=== PATIENT | female | born 1945 | race Caucasian/White ===

== ENCOUNTER 2018-12-05 09:01 | Emergency (ER) | payer MEDICARE, BC ==
[~2018-12-05] VITALS: Ht 157.5 cm; Wt 79.4 kg
[2018-12-05] MEDS ORDERED: SYNTHROID75 MCG ORAL (09:17)
[2018-12-05] MEDS ORDERED: OMEPRAZOLE40 M1 ORAL (09:17)
--- NOTE | 2018-12-05 09:26 | NUR ---
ED Nurse Note:pt. came with c/o upper respitatory infection for several days, seen by ER MD and was placed on vehicle monitor technician [id number]
[2018-12-05] MEDS ORDERED: Albuterol ud Inhalation HHN ONE (09:30)
[2018-12-05 09:34] VITALS: BP 126/65
--- NOTE | 2018-12-05 09:42 | NUR ---
ED Nurse Note: Patient urinated while waiting to be triaged in waiting room. pt stated "I will try soon."
--- NOTE | 2018-12-05 09:43 | NUR ---
ED Nurse Note: x-ray done at bedside and pt is getting breathing treatment.
--- NOTE | 2018-12-05 09:48 | NUR ---
ED Nurse Note: ERMD at bedside explaining patient EKG results which is normal.
[2018-12-05 09:51] LABS: BASOPHILS % (AUTO) 0.8 % (0.0-2.0); EOSINOPHILS % (AUTO) 3.6 % (0.0-3.0); HEMATOCRIT 42.3 % (37.0-47.0); HEMOGLOBIN 14.2 G/DL (12.0-16.0); LYMPHOCYTES % (AUTO) 17.2 % (20.0-45.0); MEAN CORPUSCULAR VOLUME 91 FL (80-99); MONOCYTES % (AUTO) 6.5 % (1.0-10.0); NEUTROPHILS % (AUTO) 71.9 % (45.0-75.0); PLATELET COUNT 225 K/UL (150-450); RED BLOOD COUNT 4.64 M/UL (4.20-5.40); WHITE BLOOD COUNT 10.3 K/UL (4.8-10.8)
--- NOTE | 2018-12-05 09:56 | NUR ---
ED Nurse Note: Patient could not provide urine sample. KELLIED made aware.
[2018-12-05 10:00] LABS: ANION GAP 10 mmol/L (5-15); BLOOD UREA NITROGEN 20 mg/dL (7-18); CALCIUM 8.8 MG/DL (8.5-10.1); CARBON DIOXIDE 24 MMOL/L (21-32); CHLORIDE 104 MMOL/L (98-107); CREATININE 0.9 MG/DL (0.55-1.30); POTASSIUM 3.9 MMOL/L (3.5-5.1); SODIUM 138 MMOL/L (136-145)
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
[2018-12-05 10:11] LABS: ALANINE AMINOTRANSFERASE 93 U/L (12-78); ALBUMIN 3.7 G/DL (3.4-5.0); ALKALINE PHOSPHATASE 85 U/L (46-116); ASPARTATE AMINO TRANSFERASE 45 U/L (15-37); BILIRUBIN,TOTAL 0.6 MG/DL (0.2-1.0)
[2018-12-05] MEDS ORDERED: Solu-MEDROL 125mg Inj IVP ONE (10:15)
--- NOTE | 2018-12-05 10:19 | NUR ---
ED Nurse Note: Patient provided urine sample. it was sent to the lab.
[2018-12-05 10:27] LABS: APPEARANCE,URINE CLEAR; BILIRUBIN, URINE NEGATIVE (NEGATIVE); COLOR,URINE PALE YELLOW; GLUCOSE, URINE (UA) NEGATIVE (NEGATIVE); KETONES,URINE NEGATIVE (NEGATIVE); LEUKOCYTE ESTERASE ,URINE NEGATIVE (NEGATIVE); NITRITE,URINE NEGATIVE (NEGATIVE); PH,URINE 5 (4.5-8.0); PROTEIN,URINE NEGATIVE (NEGATIVE); UROBILINOGEN,URINE NORMAL MG/DL (0.0-1.0)
--- NOTE | 2018-12-05 10:34 | Diagnostic Imaging Report ---
EXAM: XR Chest, 1 View CLINICAL HISTORY: DYSPNEA TECHNIQUE: Frontal view of the chest. COMPARISON: No relevant prior studies available. FINDINGS: Lungs: Decreased lung volumes, likely related to shallow inspiration. This results in mild prominence of the interstitial markings likely related to crowding of the bronchovascular structures. Minimal subsegment atelectasis in the lung bases. Pleural space: Unremarkable. The costophrenic angles are sharp. No visible pneumothorax. Heart: Unremarkable. No cardiomegaly. Mediastinum: Unremarkable. Bones/joints: Degenerative changes throughout the visualized spine and shoulder joints. Vasculature: Mild calcifications within the aortic arch. Tubes, lines and devices: EKG leads overlie the thorax. IMPRESSION: 1. Decreased lung volumes, likely related to shallow inspiration. This results in mild prominence of the interstitial markings likely related to crowding of the bronchovascular structures. 2. Minimal subsegment atelectasis in the lung bases.
[2018-12-05 11:08] VITALS: BP 121/73
--- NOTE | 2018-12-05 11:15 | NUR ---
ED Nurse Note: ERMD at bedside speaking to patient and about lab results.
[2018-12-05] MEDS ORDERED: ALBUTEROL SULF8.5 GM INH (11:27)
[2018-12-05] MEDS ORDERED: ROBITUSSIN COU237 M2 PO (11:27)
[2018-12-05] MEDS ORDERED: PREDNISONE20 MG ORAL (11:27)
[2018-12-05 11:32] VITALS: BP 118/72
--- NOTE | 2018-12-05 11:33 | NUR ---
ER DISCHARGE NOTE: Patient is cleared to be discharged per ERMD, pt is aox4, accompanied by spouse, on room air, with stable vital signs. pt was given dc and prescription instructions, pt was able to verbalize understanding, pt id band and iv site removed without complications. pt is able to ambulate with steady gait and son is picking them up with vehicle. pt took all belongings.
== END 2018-12-05 11:34 | disposition home or self-care (01) ==
LOC: EMR 09:36
DX: J06.9 Acute upper respiratory infection, unspecified (principal); J98.01 Acute bronchospasm; D72.1 Eosinophilia; Z88.6 Allergy status to analgesic agent; F17.200 Nicotine dependence, unspecified, uncomplicated
CPT/HCPCS: 36415; 71045; 80053; 81003; 83880; 84484; 85025; 85610; 85730; 93005; 94640; 94664; 96374; 99284; J2930